=== PATIENT | female | born 1965 ===

== ENCOUNTER 2020-11-01 16:12 | Emergency (ER) | payer MEDICAID ==
[~2020-11-01] VITALS: Ht 165.1 cm; Wt 103.6 kg
[2020-11-01 16:22] VITALS: BP 144/50
[2020-11-01] MEDS ORDERED: DIAZEPAM 5 MG TABLET ONE (17:14)
[2020-11-01] MEDS ORDERED: DIAZEPAM 5 MG TABLET PO ONE (17:30)
== END 2020-11-01 18:37 | disposition home or self-care (01) ==
LOC: ED 17:00
DX: S16.1XXA Strain of muscle, fascia and tendon at neck level, initial encounter (principal); M54.12 Radiculopathy, cervical region; X58.XXXA Exposure to other specified factors, initial encounter; Y93.89 Activity, other specified; Y92.89 Other specified places as the place of occurrence of the external cause; Y99.8 Other external cause status
CPT/HCPCS: 99283

== ENCOUNTER 2021-01-28 19:42 | Emergency (ER) | payer MEDICAID ==
[~2021-01-28] VITALS: Ht 160 cm; Wt 80.0 kg
--- NOTE | 2021-01-28 20:10 | NUR ---
PT IN WITH SAME COMPLAINTS DAUGHTER. COVID-LIKE SYMPTOMS, UNVACCINATED. PT REPORTS, "I'M WORSE THAN MY DAUGHTER. I'VE HAD SOME CHEST PAIN AND SOB. IT SEEMED LIKE IT WAS GETTING BETTER, BUT THEN TODAY THE HEADACHE AND RUNNY NOSE CAME BACK."
--- NOTE | 2021-01-28 20:15 | NUR ---
PT REPORTED MILD CHEST PAIN/TIGHTNESS. NIGHT FILLER TO DO EKG AT BS. ERP AWARE. PT ALSO REPORTS DIARRHEA AT HOME.
[2021-01-28] MEDS ORDERED: BENZONATATE 100 MG CAPSULE ONE (20:41)
[2021-01-28] MEDS ORDERED: BENZONATATE 100 MG CAPSULE PO ONE (21:00)
[2021-01-28 21:20] VITALS: BP 115/58
--- NOTE | 2021-01-28 21:24 | NUR ---
ERP WAS IN FOR RECHECK. PT MEDICATED PER ORDERS.
--- NOTE | 2021-01-28 21:45 | NUR ---
D/C INSTRUCTIONS, MEDS & F/U APPT RV'WD WITH PT, SHE VERBALIZES UNDERSTANDING. RX GIVEN X3. INSTRUCTED PT TO RETURN TO ED FOR SOB, CHEST PAIN OR ANY CONCERNING SYMPTOMS. ENCOURAGED PT TO USE PULSE OXIMETER AT HOME AND RETURN FOR SPO2 LESS THAN 90%. PT AMBULATED OUT OF ED WITH DAUGHTER WITHOUT DIFFICULTY.
== END 2021-01-28 22:02 | disposition home or self-care (01) ==
LOC: ED 21:30
DX: U07.1 COVID-19 (principal); R19.7 Diarrhea, unspecified; R05 Cough; R07.89 Other chest pain; J02.9 Acute pharyngitis, unspecified; I10 Essential (primary) hypertension
CPT/HCPCS: 71045; 93005; 99285; J7512; U0003; U0005